=== PATIENT | female | born 2000 | race Caucasian/White ===

== ENCOUNTER 2020-08-21 15:03 | Emergency (ER) | payer SELFPAY ==
[2020-08-21] VITALS (8 sets, daily range): BP systolic 109–129; BP diastolic 46–88; PULSE 70–81; RESP 14–18; TEMP 37.3; O2SAT 98–100; BMI 22.6
--- NOTE | 2020-08-21 17:54 | XRR_ITS ---
PROCEDURE INFORMATION: Exam: XR Chest, 1 View Exam date and time: 08/21/2020 6:04 PM Age: 20 years old Clinical indication: Chest pain; Type not specified; Additional info: Cp x 2 days TECHNIQUE: Imaging protocol: XR of the chest Views: 1 view. COMPARISON: No relevant prior studies available. FINDINGS: Lungs: Unremarkable. No consolidation. Pleural spaces: Unremarkable. No pleural effusion. No pneumothorax. Heart/Mediastinum: Unremarkable. No cardiomegaly. Bones/joints: Unremarkable. XR/XR chest 1V portable [id number] IMPRESSION: No acute findings.
[2020-08-21 18:13] LABS: Basophils # 0.1 10^3/uL (0.0-0.1); Eosinophils # 0.2 10^3/uL (0.0-0.8); Eosinophils % 3.3 %; Hematocrit 43.2 % (37.0-47.0); Hemoglobin 13.5 g/dL (11.5-15.3); Lymphocytes # 2.3 10^3/uL (1.5-6.5); Lymphocytes % 37.3 %; Mean Corpuscular HGB Conc 31.3 g/dL (30.0-36.0); Mean Corpuscular Hemoglobin 28.6 pg (28.0-34.0); Mean Corpuscular Volume 91.5 fL (81-99); Mean Platelet Volume 9.8 fL (7.4-10.4); Monocytes # 0.4 10^3/uL (0.2-0.9); Monocytes % 6.5 %; Neutrophils # 3.13 10^3/uL (1.8-8.0); Neutrophils % 51.7 %; Nucleated Red Blood Cells % 0 %; Platelet Count 307 10^3/cmm (130-400); Red Blood Count 4.72 10^6/uL (4.1-5.3)
--- NOTE | 2020-08-21 18:23 | W.ED.ABDPA2 ---
HPI - Abdominal Pain General: Chief Complaint: Abdominal Pain Stated Complaint: KIDNEY PAIN Time Seen by Provider: 08/21/20 17:48 Source: patient Mode of arrival: ambulatory Limitations: no limitations History of Present Illness: HPI narrative: 20-year-old female who states she has been having some dysuria along with some back pain over the last 2 weeks. States she is concerned that she may have a kidney infection or urinary tract infection. She denies any vaginal discharge denies any abdominal pain. She had no vomiting or diarrhea. States she is also had a slight chest pain.She denies any cough. MD elicited complaint: abdominal pain Associated Symptoms: Denies chills, dysuria and fever(s) Review of Systems Const: Denies: fever(s), chills, body aches or change in appetite Eyes: Denies: blurry vision or eye discomfort ENMT: Denies: throat pain or dental pain Card: Reports: chest pain Resp: Denies: dyspnea GI: Reports: abdominal pain : Denies: dysuria Musc: Denies: neck pain or back pain Skin/Breast: Denies: rash Neuro: Denies: headache(s) Psych: Denies: depression Yong/Lymph: Denies: easy bruising All/Imm: Denies: urticaria Physical Exam Const: COMMON NORMALS: no acute distress, patient oriented x3 and healthy appearing HENMT: COMMON NORMALS: normocephalic and atraumatic HEAD & SCALP: normocephalic and atraumatic Eye: COMMON NORMALS: Equal, round and reactive pupils present and EOMs intact bilaterally PUPIL: Yes Equal, round and reactive pupils present Neck/C-Spine: COMMON NORMALS: full ROM and supple Chest: COMMONS NORMALS: normal inspection of the chest and normal palpation of entire chest wall Resp: COMMON NORMALS: normal respiratory effort, No retractions, No use of accessory muscles and clear to auscultation bilaterally AUSCULTATION: clear to auscultation bilaterally Cardio: COMMON NORMALS: regular rate, regular rhythm and No murmurs present (Cardio) RATE: regular rate RHYTHM: regular rhythm GI: COMMON NORMALS: Normal to inspection, nondistended, normoactive bowel sounds present, Soft to palpation, non-tender and no masses PALPATION: Yes Soft to palpation Extremity: COMMON NORMALS: normal to inspection and full ROM Neuro: COMMON NORMALS: patient oriented x3, moves all extremities and no focal motor deficits Psych: COMMON NORMALS: mental status grossly normal, Normal thought process present and cooperative THOUGHT PROCESS: Normal thought process present Skin: COMMON NORMALS: no rashes or lesions noted and no wounds GENERAL SKIN EXAM: no rashes or lesions noted Course Vital Signs: Vital signs: Vital Signs Temperature 99.1 F 08/21/20 16:13 Pulse Rate 78 08/21/20 19:30 Respiratory Rate 16 08/21/20 19:30 Blood Pressure 120/46 08/21/20 19:30 Pulse Oximetry 100 08/21/20 19:30 MDM - Abdominal Pain MDM Narrative: Medical decision making narrative: Patient presents here with abdominal and flank pain with CT showing some fluid in the pelvis likely from a ruptured ovarian cyst. Her pain is minimal here and exam here is benign. She is stable for discharge is to follow-up with her PCP in 2 to 4 days. I will write her [place] for home. Urinalysis here shows no signs urinary tract infection. She denies any vaginal discharge and has no signs of PID. She is to return if worsening. Lab Data: Labs: Lab Results 08/21/20 08/21/20 08/21/20 Range/Units 17:47 17:47 17:47 WBC (4.5-13.0) 10^3/ uL RBC (4.1-5.3) 10^6/u L Hgb (11.5-15.3) g/dL Hct (37.0-47.0) % MCV (81-99) fL MCH (28.0-34.0) pg MCHC (30.0-36.0) g/dL RDW (12.1-15.1) % Plt Count (130-400) 10^3/c mm MPV (7.4-10.4) fL Neut % (Auto) % Lymph % (Auto) % [place] % (Auto) % Eos % (Auto) % Baso % (Auto) % Neut # (Auto) (1.8-8.0) 10^3/u L Lymph # (Auto) (1.5-6.5) 10^3/u L [place] # (Auto) (0.2-0.9) 10^3/u L Eos # (Auto) (0.0-0.8) 10^3/u L Baso # (Auto) (0.0-0.1) 10^3/u L Nucleated RBC % (a uto) % Nucleated RBCs # /100WBC Sodium Potassium Chloride Carbon Dioxide Anion Gap BUN Creatinine GFR Calculation Glucose Calculated Osmolal ity Calcium Total Bilirubin AST ALT Alkaline Phosphata se Total Protein Albumin Globulin Lipase HCG, Qual Negative (Negative) Urine Color Straw Cancelled (Yellow) Urine Appearance Clear Cancelled (CLEAR) Urine pH 5 Cancelled (5-7) Ur Specific Gravit y 1.015 Cancelled (1.005-1.030) Urine Protein Neg Cancelled (Negative) Urine Glucose (UA) Norm Cancelled (Normal) Urine Ketones Negative Cancelled (Negative) Urine Blood Neg Cancelled (Negative) Urine Nitrate Negative Cancelled (Negative) Urine Bilirubin Neg Cancelled (Negative) Prot Sulfosalicyli c Acd Cancelled Urine Urobilinogen Norm Cancelled (Negative) mg/dL Ur Leukocyte Keyla ase Negative Cancelled (Negative) Urine RBC None (0-2) /hpf Urine WBC None (0-5) /hpf Ur Squamous Epith Cells Rare (0-5) /hpf Amorphous Sediment Not Reportable Urine Bacteria Trace (NONE) /hpf 08/21/20 08/21/20 08/21/20 Range/Units 17:50 17:50 19:00 WBC 6.0 (4.5-13.0) 10^3/ uL RBC 4.72 (4.1-5.3) 10^6/u L Hgb 13.5 (11.5-15.3) g/dL Hct 43.2 (37.0-47.0) % MCV 91.5 (81-99) fL MCH 28.6 (28.0-34.0) pg MCHC 31.3 (30.0-36.0) g/dL RDW 13.0 (12.1-15.1) % Plt Count 307 (130-400) 10^3/c mm MPV 9.8 (7.4-10.4) fL Neut % (Auto) 51.7 % Lymph % (Auto) 37.3 % [place] % (Auto) 6.5 % Eos % (Auto) 3.3 % Baso % (Auto) 1.0 % Neut # (Auto) 3.13 (1.8-8.0) 10^3/u L Lymph # (Auto) 2.3 (1.5-6.5) 10^3/u L [place] # (Auto) 0.4 (0.2-0.9) 10^3/u L Eos # (Auto) 0.2 (0.0-0.8) 10^3/u L Baso # (Auto) 0.1 (0.0-0.1) 10^3/u L Nucleated RBC % (a uto) 0 % Nucleated RBCs # 0.0 /100WBC Sodium Cancelled 140 Potassium Cancelled 3.5 Chloride Cancelled 106 Carbon Dioxide Cancelled 25 Anion Gap Cancelled 12.5 BUN Cancelled 7 Creatinine Cancelled 0.5 GFR Calculation Cancelled 157.3 H Glucose Cancelled 83 Calculated Osmolal ity Cancelled 287 Calcium Cancelled 8.8 Total Bilirubin Cancelled 0.2 AST Cancelled 35 H ALT Cancelled 28 Alkaline Phosphata se Cancelled 67 Total Protein Cancelled 7.0 Albumin Cancelled 4.4 Globulin Cancelled 2.6 Lipase Cancelled 22 HCG, Qual (Negative) Urine Color (Yellow) Urine Appearance (CLEAR) Urine pH (5-7) Ur Specific Gravit y (1.005-1.030) Urine Protein (Negative) Urine Glucose (UA) (Normal) Urine Ketones (Negative) Urine Blood (Negative) Urine Nitrate (Negative) Urine Bilirubin (Negative) Prot Sulfosalicyli c Acd Urine Urobilinogen (Negative) mg/dL Ur Leukocyte Keyla ase (Negative) Urine RBC (0-2) /hpf Urine WBC (0-5) /hpf Ur Squamous Epith Cells (0-5) /hpf Amorphous Sediment Urine Bacteria (NONE) /hpf Imaging Data ^: CT Abd/Pel: Attestation: I personally reviewed and interpreted this imaging study as follows: Radiologist's impression: [address] [address] [address] Scan Report Signed Patient: Patti Naranjo Unit #: [id number] 2000 Age/Sex: 20 / F ADM Date: 08/21/20 Loc: ER Room/Bed: Attending Dr: Ordering Provider/Ordering MD: Federico Whipple MD Date of Service: 08/21/20 Procedure(s): CT abdomen pelvis w con* [id number] Accession Number(s): [id number] Report Number: [id number] PROCEDURE INFORMATION: Exam: CT Abdomen And Pelvis With Contrast Exam date and time: 08/21/2020 7:50 PM Age: 20 years old Clinical indication: Abdominal pain; Other: Bilat flank; Additional info: Abd pain TECHNIQUE: Imaging protocol: Computed tomography of the abdomen and pelvis with contrast. Radiation optimization: All CT scans at this facility use at least one of these dose optimization techniques: automated exposure control; mA and/or kV adjustment per patient size (includes targeted exams where dose is matched to clinical indication); or iterative reconstruction. Contrast material: OMNI 300; Contrast volume: 95 ml; Contrast route: INTRAVENOUS (IV); COMPARISON: No relevant prior studies available. RADIATION DOSE METRICS: Total DLP (mGy-cm): 340.22 FINDINGS: Liver: Normal. No mass. Gallbladder and bile ducts: Collapsed gallbladder. Pancreas: Normal. No ductal dilation. Spleen: Normal. No splenomegaly. Adrenal glands: Normal. No mass. Kidneys and ureters: Normal. No hydronephrosis. Stomach and bowel: Unremarkable. No obstruction. No mucosal thickening. Appendix: No evidence of appendicitis. Intraperitoneal space: Small amount of nonspecific high density free fluid in the dependent portion of the pelvis suggesting hemorrhagic rupture of ovarian cyst versus less likely possibility of pelvic inflammatory disease. Vasculature: Unremarkable. No abdominal aortic aneurysm. Lymph nodes: Unremarkable. No enlarged lymph nodes. Urinary bladder: Unremarkable as visualized. Reproductive: Probable right corpus luteum cyst with ring enhancement noted on coronal image 20. Bones/joints: Unremarkable. No acute fracture. Soft tissues: Unremarkable. CT/CT abdomen pelvis w con* [id number] IMPRESSION: Small amount of nonspecific high density free fluid in the dependent portion of the pelvis suggesting hemorrhagic rupture of ovarian cyst versus less likely possibility of pelvic inflammatory disease. Discharge Plan Discharge Patient Disposition: Home Clinical Impression: Ovarian cyst Qualifiers: Laterality: unspecified laterality Qualified Code(s): N83.209 - Unspecified ovarian cyst, unspecified side Condition: Stable Prescriptions: [place] 5-325 mg tablet 1 tab PO Q6H PRN (Reason: pain) Qty: 14 RF: 0 ondansetron 4 mg tablet,disintegrating 4 mg PO Q6H PRN (Reason: nausea and vomiting) Qty: 14 RF: 0 Discharge Orders: Discharge ED (Routine); Ordered 08/21/20 Ordered By: Federico Whipple Referrals: Vini Titus MD [Primary Care Provider] - 1-3 days Discharge Diet: Advance as tolerated Discharge Activity: Resume usual activity Coding Level of Care Code ED Building Trades Instructor for Chg Fwd Exam Comprehensive
[2020-08-21] MEDS: sodium chloride 0.9% 1,000 ML 999 ML IV (18:24)
[2020-08-21 18:35] LABS: HCG Qualitative Urine. Negative (Negative)
[2020-08-21 18:41] LABS: Add Urine Culture? No; Bacteria Urine TRACE /hpf; Bilirubin Urine Neg (Negative); Blood Urine Neg (Negative); Glucose Urine UA Norm (Normal); Ketones Urine Negative (Negative); Leukocyte Esterase Urine Negative (Negative); Nitrate Urine Negative (Negative); Protein Urine Neg (Negative); Specific Gravity, Urine 1.015 (1.005-1.030); Squamous Epithelial Cell Urine RARE /hpf (0-5); Urine Appearance Clear (CLEAR); Urine Color Straw (Yellow); Urobilinogen Urine Norm (Negative); pH Urine 5 (5-7)
[2020-08-21 19:33] LABS: Alanine Aminotransferase 28 U/L (0-33); Albumin Level 4.4 g/dL (3.5-5.2); Alkaline Phosphatase 67 IU/L (35-105); Anion Gap 12.5 (5-19); Aspartate Amino Transferase 35 U/L (0-32); Blood Urea Nitrogen 7 mg/dL (6-20); Calcium 8.8 mg/dL (8.5-10.5); Carbon Dioxide 25 mmol/L (22-29); Chloride 106 mmol/L (98-107); Creatinine Clr Calc Pharmacy 172.7801; Globulin 2.6 g/dL (1.3-4.6); Glomerular Filtration Rate 157.3 mL/min (90-130); Glucose 83 mg/dL (65-115); Lipase 22 U/L (13-60); Osmolality Calculated 287 mOsm/kg (285-295); Potassium 3.5 mmol/L (3.5-5.1); Sodium 140 mmol/L (136-145); Total Bilirubin 0.2 mg/dL (0.15-1.2)
--- NOTE | 2020-08-21 19:49 | CTR_ITS ---
PROCEDURE INFORMATION: Exam: CT Abdomen And Pelvis With Contrast Exam date and time: 08/21/2020 7:50 PM Age: 20 years old Clinical indication: Abdominal pain; Other: Bilat flank; Additional info: Abd pain TECHNIQUE: Imaging protocol: Computed tomography of the abdomen and pelvis with contrast. Radiation optimization: All CT scans at this facility use at least one of these dose optimization techniques: automated exposure control; mA and/or kV adjustment per patient size (includes targeted exams where dose is matched to clinical indication); or iterative reconstruction. Contrast material: OMNI 300; Contrast volume: 95 ml; Contrast route: INTRAVENOUS (IV); COMPARISON: No relevant prior studies available. RADIATION DOSE METRICS: Total DLP (mGy-cm): 340.22 FINDINGS: Liver: Normal. No mass. Gallbladder and bile ducts: Collapsed gallbladder. Pancreas: Normal. No ductal dilation. Spleen: Normal. No splenomegaly. Adrenal glands: Normal. No mass. Kidneys and ureters: Normal. No hydronephrosis. Stomach and bowel: Unremarkable. No obstruction. No mucosal thickening. Appendix: No evidence of appendicitis. Intraperitoneal space: Small amount of nonspecific high density free fluid in the dependent portion of the pelvis suggesting hemorrhagic rupture of ovarian cyst versus less likely possibility of pelvic inflammatory disease. Vasculature: Unremarkable. No abdominal aortic aneurysm. Lymph nodes: Unremarkable. No enlarged lymph nodes. Urinary bladder: Unremarkable as visualized. Reproductive: Probable right corpus luteum cyst with ring enhancement noted on coronal image 20. Bones/joints: Unremarkable. No acute fracture. Soft tissues: Unremarkable. CT/CT abdomen pelvis w con* [id number] IMPRESSION: Small amount of nonspecific high density free fluid in the dependent portion of the pelvis suggesting hemorrhagic rupture of ovarian cyst versus less likely possibility of pelvic inflammatory disease. Radiation Dose CTDIVOL = (mGy): DLP = 340.22 (mGy-cm)
[2020-08-21] MEDS: iohexol 300 mg/mL 100 mL Btl IV (19:59)
== END 2020-08-21 20:42 | disposition home or self-care (01) ==
PROVIDERS: Physician Assistant; Emergency Provider Emergency Medicine; PCP Family Medicine
DX: N83.209 Unspecified ovarian cyst, unspecified side (principal)
CPT/HCPCS: 12345; 36415; 71045; 74177; 80053; 81001; 81003; 81025; 83690; 85025; 99283; J7030; Q9967

== ENCOUNTER 2021-01-29 13:09 | Emergency (ER) | payer SELFPAY ==
[2021-01-29 13:13] VITALS: BP 90/54; PULSE 58; RESP 18; TEMP 36.3; O2SAT 98; BMI 22.4
[2021-01-29 15:22] LABS: Add Urine Microscopic? NO; Urine Appearance Clear (CLEAR); Urine Color Yellow (Yellow); pH Urine 7 (5-7)
[2021-01-29 15:23] LABS: HCG Qualitative Urine. Negative (Negative)
[2021-01-29 15:23] LABS: Bilirubin Urine Neg (Negative); Blood Urine Neg (Negative); Charge for UA Resulting for Rev; Glucose Urine UA Norm (Normal); Ketones Urine Negative (Negative); Leukocyte Esterase Urine Negative (Negative); Nitrate Urine Negative (Negative); Protein Urine Neg (Negative); Urobilinogen Urine Norm (Negative)
--- NOTE | 2021-01-29 16:23 | W.ED.ABDPA2 ---
HPI - Abdominal Pain General: Chief Complaint: Abdominal Pain Stated Complaint: NAUSEA AND ABD PAIN Time Seen by Provider: 01/29/21 16:01 History of Present Illness: HPI narrative: 20-year-old female presents emergency complaining of bilateral pelvic pain for the last 30 minutes. She has not had any vomiting or diarrhea no fever sweats or chills she has a history of ovarian cyst in the past she does not believe there is any potential she is . MD elicited complaint: abdominal pain Pertinent past history: other (Ovarian cysts) Onset (ago): hour(s) Pain Consistency: intermittent Location: Pelvis Quality: cramping Radiation: none Migration to: no migration Exacerbating factors: movement Relieving factors: rest Associated Symptoms: Reports GI cramping; Denies anorexia, belching, bloating, change in bowel habits, change in stool character, chills, coffee ground emesis, constipation, diarrhea, dyspepsia, dysuria, excessive flatus, fever(s), heartburn, hematochezia, hematuria, hematemesis, fecal incontinence, loose stools, melena, nausea, poor appetite, syncope and vomiting Review of Systems Const: Denies: fever(s) or chills ENMT: Denies: throat pain, ear or mastoid pain, nasal discharge or nasal congestion Card: Denies: syncope Resp: Denies: dyspnea, productive cough or non-productive cough GI: Reports: GI cramping; Denies: nausea, vomiting, hematemesis, coffee ground emesis, heartburn, diarrhea, constipation, bloating, belching, excessive flatus, fecal incontinence, change in bowel habits, change in stool character, hematochezia or melena : Denies: dysuria or hematuria Skin/Breast: Denies: rash or pruritus Physical Exam Const: COMMON NORMALS: no acute distress GENERAL APPEARANCE: cooperative and comfortable ORIENTATION/CONSCIOUSNESS: Yes awake, Yes oriented to person, Yes oriented to place and Yes oriented to time HENMT: COMMON NORMALS: normocephalic, atraumatic, hearing grossly normal bilaterally and external ears normal HEAD & SCALP: normocephalic and atraumatic EXTERNAL EAR: Yes external ears normal Neck/C-Spine: COMMON NORMALS: no JVD Resp: COMMON NORMALS: normal respiratory effort, No retractions, No use of accessory muscles and clear to auscultation bilaterally AUSCULTATION: clear to auscultation bilaterally Cardio: COMMON NORMALS: no JVD, regular rate, regular rhythm and No murmurs present (Cardio) RATE: regular rate RHYTHM: regular rhythm GI: COMMON NORMALS: Soft to palpation and No hepatosplenomegaly present AUSCULTATION: Yes normoactive bowel sounds PALPATION: Yes Soft to palpation, No Tenderness to palpation present (GI), No Guarding due to palpation present (GI) and Yes No hepatosplenomegaly present Extremity: COMMON NORMALS: normal to inspection, capillary refill normal, no clubbing, cyanosis or edema, no calf tenderness and no pedal edema Neuro: SENSORIUM/ORIENTATION: Yes oriented to person, Yes oriented to place and Yes oriented to time Skin: COMMON NORMALS: no rashes or lesions noted GENERAL SKIN EXAM: no rashes or lesions noted Course Vital Signs: Vital signs: Vital Signs Temperature 97.4 F L 01/29/21 13:13 Pulse Rate 61 01/29/21 17:32 Respiratory Rate 18 01/29/21 17:32 Blood Pressure 99/56 01/29/21 17:32 Pulse Oximetry 98 01/29/21 17:32 MDM - Abdominal Pain MDM Narrative: Medical decision making narrative: Negative beta-hCG. Ultrasound shows pelvic fluid consistent with ruptured ovarian cyst. Discharge home with anti-inflammatories follow-up with primary care return if symptoms worsen Lab Data: Labs: Lab Results 01/29/21 01/29/21 01/29/21 Range/Units 14:52 15:00 16:35 WBC 10.8 (4.5-13.0) 10^3/ uL RBC 4.41 (4.1-5.3) 10^6/u L Hgb 12.7 (11.5-15.3) g/dL Hct 40.3 (37.0-47.0) % MCV 91.4 (81-99) fL MCH 28.8 (28.0-34.0) pg MCHC 31.5 (30.0-36.0) g/dL RDW 13.0 (12.1-15.1) % Plt Count 266 (130-400) 10^3/c mm MPV 9.9 (7.4-10.4) fL Neut % (Auto) 80.0 % Lymph % (Auto) 12.9 % [facility] % (Auto) 5.9 % Eos % (Auto) 0.6 % Baso % (Auto) 0.4 % Neut # (Auto) 8.66 H (1.8-8.0) 10^3/u L Lymph # (Auto) 1.4 L (1.5-6.5) 10^3/u L [facility] # (Auto) 0.6 (0.2-0.9) 10^3/u L Eos # (Auto) 0.1 (0.0-0.8) 10^3/u L Baso # (Auto) 0.0 (0.0-0.1) 10^3/u L Nucleated RBC % (a uto) 0 % Nucleated RBCs # 0.0 /100WBC Sodium (136-145) mmol/L Potassium (3.5-5.1) mmol/L Chloride (98-107) mmol/L Carbon Dioxide (22-29) mmol/L Anion Gap (5-19) BUN (6-20) mg/dL Creatinine (0.5-0.9) mg/dL GFR Calculation (90-130) mL/min Glucose (65-115) mg/dL Calculated Osmolal ity (285-295) mOsm/k g Calcium (8.5-10.5) mg/dL Total Bilirubin (0.15-1.2) mg/dL AST (0-32) U/L ALT (0-33) U/L Alkaline Phosphata se (35-105) IU/L Total Protein (6.6-8.7) g/dL Albumin (3.5-5.2) g/dL Globulin (1.3-4.6) g/dL Lipase (13-60) U/L HCG, Qual Negative (Negative) Urine Color Yellow (Yellow) Urine Appearance Clear (CLEAR) Urine pH 7 (5-7) Ur Specific Gravit y 1.010 (1.005-1.030) Urine Protein Neg (Negative) Urine Glucose (UA) Norm (Normal) Urine Ketones Negative (Negative) Urine Blood Neg (Negative) Urine Nitrate Negative (Negative) Urine Bilirubin Neg (Negative) Urine Urobilinogen Norm (Negative) mg/dL Ur Leukocyte Keyla ase Negative (Negative) 01/29/21 01/29/21 Range/Units 16:35 16:35 WBC (4.5-13.0) 10^3/ uL RBC (4.1-5.3) 10^6/u L Hgb (11.5-15.3) g/dL Hct (37.0-47.0) % MCV (81-99) fL MCH (28.0-34.0) pg MCHC (30.0-36.0) g/dL RDW (12.1-15.1) % Plt Count (130-400) 10^3/c mm MPV (7.4-10.4) fL Neut % (Auto) % Lymph % (Auto) % [facility] % (Auto) % Eos % (Auto) % Baso % (Auto) % Neut # (Auto) (1.8-8.0) 10^3/u L Lymph # (Auto) (1.5-6.5) 10^3/u L [facility] # (Auto) (0.2-0.9) 10^3/u L Eos # (Auto) (0.0-0.8) 10^3/u L Baso # (Auto) (0.0-0.1) 10^3/u L Nucleated RBC % (a uto) % Nucleated RBCs # /100WBC Sodium 137 (136-145) mmol/L Potassium 4.1 (3.5-5.1) mmol/L Chloride 103 (98-107) mmol/L Carbon Dioxide 24 (22-29) mmol/L Anion Gap 14.1 (5-19) BUN 9 (6-20) mg/dL Creatinine 0.5 (0.5-0.9) mg/dL GFR Calculation 157.3 H (90-130) mL/min Glucose 80 (65-115) mg/dL Calculated Osmolal ity 282 L (285-295) mOsm/k g Calcium 9.0 (8.5-10.5) mg/dL Total Bilirubin 0.3 (0.15-1.2) mg/dL AST 18 (0-32) U/L ALT 11 (0-33) U/L Alkaline Phosphata se 56 (35-105) IU/L Total Protein 7.3 (6.6-8.7) g/dL Albumin 4.5 (3.5-5.2) g/dL Globulin 2.8 (1.3-4.6) g/dL Lipase 15 (13-60) U/L HCG, Qual Negative (Negative) Urine Color (Yellow) Urine Appearance (CLEAR) Urine pH (5-7) Ur Specific Gravit y (1.005-1.030) Urine Protein (Negative) Urine Glucose (UA) (Normal) Urine Ketones (Negative) Urine Blood (Negative) Urine Nitrate (Negative) Urine Bilirubin (Negative) Urine Urobilinogen (Negative) mg/dL Ur Leukocyte Keyla ase (Negative) Discharge Plan Discharge Patient Disposition: Home Clinical Impression: Ovarian cyst Condition: Stable Prescriptions: New diclofenac sodium 75 mg tablet,delayed release (DR/EC) 75 mg PO Q12H PRN (Reason: pain) Qty: 20 RF: 0 Discharge Orders: Discharge ED (Routine); Ordered 01/29/21 Ordered By: George Meade Referrals: Vini Titus MD [Primary Care Provider] - Discharge Diet: Usual diet Discharge Activity: Resume usual activity Patient Instructions: Opioid Safety Activity Restrictions/Additional Instructions: Follow-up with your doctor as needed. Coding Level of Care Code ED Flight Simulator Teacher for Chg Fwd Exam Comprehensive
--- NOTE | 2021-01-29 16:26 | USR_ITS ---
PROCEDURE INFORMATION: Exam: US Nonobstetric Pelvis; Complete Exam date and time: 01/29/2021 4:50 PM Age: 20 years old Clinical indication: Pelvic pain; Patient HX: Pain in lower abd. PT states started and worse on lt. TECHNIQUE: Imaging protocol: Transabdominal pelvic nonobstetric ultrasound. Complete exam. Real time ultrasound with image documentation. COMPARISON: CT abdomen pelvis w con* [id number] 08/21/2020 7:48 PM FINDINGS: Uterus/cervix: Uterus is normal. Endometrial stripe is normal measuring 1.2 cm in thickness. Right adnexa: Ovary is normal. No mass. Normal blood flow. Left adnexa: Ovary is normal. Normal blood flow. Probable small follicle measuring 1.8 cm in size. Intraperitoneal space: Trace pelvic free fluid, likely physiologic. Urinary bladder: Normal. US/US pelvic complete* [id number] IMPRESSION: Normal sonographic appearance of the uterus and ovaries. Trace pelvic free fluid, likely physiologic.
[2021-01-29 16:52] LABS: Basophils % 0.4 %; Eosinophils # 0.1 10^3/uL (0.0-0.8); Eosinophils % 0.6 %; Hematocrit 40.3 % (37.0-47.0); Hemoglobin 12.7 g/dL (11.5-15.3); Lymphocytes # 1.4 10^3/uL (1.5-6.5); Lymphocytes % 12.9 %; Mean Corpuscular HGB Conc 31.5 g/dL (30.0-36.0); Mean Corpuscular Hemoglobin 28.8 pg (28.0-34.0); Mean Corpuscular Volume 91.4 fL (81-99); Mean Platelet Volume 9.9 fL (7.4-10.4); Monocytes # 0.6 10^3/uL (0.2-0.9); Monocytes % 5.9 %; Neutrophils # 8.66 10^3/uL (1.8-8.0); Nucleated Red Blood Cells % 0 %; Platelet Count 266 10^3/cmm (130-400); Red Blood Count 4.41 10^6/uL (4.1-5.3); White Blood Count 10.8 10^3/uL (4.5-13.0)
[2021-01-29 17:21] LABS: Alanine Aminotransferase 11 U/L (0-33); Albumin Level 4.5 g/dL (3.5-5.2); Alkaline Phosphatase 56 IU/L (35-105); Aspartate Amino Transferase 18 U/L (0-32); Blood Urea Nitrogen 9 mg/dL (6-20); Carbon Dioxide 24 mmol/L (22-29); Chloride 103 mmol/L (98-107); Globulin 2.8 g/dL (1.3-4.6); Glomerular Filtration Rate 157.3 mL/min (90-130); Glucose 80 mg/dL (65-115); Lipase 15 U/L (13-60); Osmolality Calculated 282 mOsm/kg (285-295); Sodium 137 mmol/L (136-145); Total Bilirubin 0.3 mg/dL (0.15-1.2); Total Protein 7.3 g/dL (6.6-8.7)
[2021-01-29 17:22] LABS: Anion Gap 14.1 (5-19); Potassium 4.1 mmol/L (3.5-5.1)
[2021-01-29 17:32] VITALS: BP 99/56; PULSE 61; RESP 18; O2SAT 98
[2021-01-29 17:34] LABS: HCG, Serum Qual Negative (Negative)
== END 2021-01-29 17:34 | disposition home or self-care (01) ==
PROVIDERS: Registered Nurse; Emergency Provider Family Medicine; PCP Family Medicine
DX: N83.209 Unspecified ovarian cyst, unspecified side (principal)
CPT/HCPCS: 76856; 80053; 81003; 81025; 83690; 84703; 85025; 99283

== ENCOUNTER 2021-11-21 15:52 | Outpatient (CLI) | payer OTHER, SELFPAY ==
[2021-11-21 21:47] LABS: Adenovirus Not Detected (NOT DETECT); Chlamydia Pneumoniae Not Detected (NOT DETECT); Coronavirus 229E,HKU1,NL63,OC4 Not Detected (NOT DETECT); Human Metapneumovirus Not Detected (NOT DETECT); Human Rhinovirus/Enterovirus Detected (NOT DETECT); Influenza A Not Detected (NOT DETECT); Influenza A H1 Not Detected (NOT DETECT); Influenza A H1-2009 Not Detected (NOT DETECT); Influenza A H3 Not Detected (NOT DETECT); Influenza B Not Detected (NOT DETECT); Mycoplasma Pneumoniae Not Detected (NOT DETECT); Parainfluenza Virus Type 1 Not Detected (NOT DETECT); Parainfluenza Virus Type 2 Not Detected (NOT DETECT); Parainfluenza Virus Type 3 Not Detected (NOT DETECT); Parainfluenza Virus Type 4 Not Detected (NOT DETECT); Respiratory Syncytial Virus A Not Detected (NOT DETECT); Respiratory Syncytial Virus B Not Detected (NOT DETECT); SARS-COV-2 Not Detected (NOT DETECT)
[2021-11-21 22:29] LABS: Human Metapneumovirus Not Detected (NOT DETECT); Human Rhinovirus/Enterovirus Detected (NOT DETECT); Results from Genmark
== END 2021-11-21 15:53 | disposition home or self-care (01) ==
LOC: LAB 15:57
PROVIDERS: Visit Provider Registered Nurse Neonatal Intensive Care
DX: Z20.822 Contact with and (suspected) exposure to COVID-19 (principal)
CPT/HCPCS: 87635; 87801

== ENCOUNTER 2022-01-10 12:45 | Emergency (ER) | payer OTHER, SELFPAY ==
[2022-01-10 12:48] VITALS: BP 107/69; PULSE 59; RESP 15; TEMP 36.9; O2SAT 100
--- NOTE | 2022-01-10 13:12 | ED_ITS ---
HPI - Skin/Abscess/Foreign Bdy General: Chief complaint: Needlestick/Injury/Exposure Stated complaint: needle stick Time Seen by Provider: 01/10/22 12:46 History of Present Illness: Patient is a 21-year-old female comes to the ED with an accidental needlestick injury and left hand. 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 Denies any other symptoms or injury. No other complaints. Patient states she is up-to-date on her tetanus. Associated symptoms: Deny chills, fever(s), nausea or vomiting Review of Systems Const: Denies: fever(s), chills or fatigue Eyes: Denies: change in vision or eye discomfort ENMT: Denies: throat pain, odynophagia, nasal discharge or nasal congestion Card: Denies: chest pain, palpitations, edema, swelling of feet/ankles, dyspnea on exertion or orthopnea Resp: Denies: dyspnea, productive cough or non-productive cough GI: Denies: abdominal pain, nausea, vomiting, diarrhea, constipation or hematochezia : Denies: flank pain, dysuria or hematuria Musc: Denies: neck pain, back pain or extremity swelling Skin/Breast: Reports: new lesions (Small superficial puncture wound to left hand); Denies: rash Neuro: Denies: headache(s), numbness in extremities or weakness in extremities [facility] ED PFSH: Medical History (Updated 01/11/22 @ 13:21 by HAM Braden) No pertinent family history Surgical History (Updated 01/11/22 @ 13:21 by HAM Braden) No pertinent past surgical history Physical Exam Const: COMMON NORMALS: no acute distress, patient oriented x3, healthy appearing and alert GENERAL APPEARANCE: cooperative and comfortable HENMT: COMMON NORMALS: normocephalic HEAD & SCALP: normocephalic MOUTH: Normal oral and palatal mucosa present THROAT: posterior oropharynx normal and uvula midline Neck/C-Spine: COMMON NORMALS: supple GENERAL: Yes normal visual inspection Resp: COMMON NORMALS: normal respiratory effort, No retractions, No use of accessory muscles and clear to auscultation bilaterally AUSCULTATION: clear to auscultation bilaterally Cardio: COMMON NORMALS: regular rate, regular rhythm, S1 normal heart sound present, S2 normal heart sound present, No gallops present (Cardio), No clicks present (Cardio), No murmurs present (Cardio) and Peripheral pulses 2+ throughout RATE: regular rate RHYTHM: regular rhythm HEART SOUNDS: S1 normal heart sound present and S2 normal heart sound present PERIPHERAL PULSES: Peripheral pulses 2+ throughout GI: COMMON NORMALS: Normal to inspection, nondistended, normoactive bowel sounds present, Soft to palpation, non-tender and no masses PALPATION: Yes Soft to palpation : COMMON NORMALS: Yes no CVA tenderness BLADDER/KIDNEY EXAM: Yes no CVA tenderness Back/Pelvis: COMMON NORMALS: no CVA tenderness Extremity: COMMON NORMALS: normal to inspection Neuro: COMMON NORMALS: patient oriented x3 and moves all extremities SENSORIUM/ORIENTATION: Yes alert Skin: NARRATIVE SKIN EXAM: Puncture wound can hardly be seen on left hand. No other acute findings the rest of exam of hand is benign. 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 She had an accidental needlestick into the left hand with suture needle. She is healthy and having no side effects. Exam is benign. Vitals are stable. Needlestick injury labs performed. CBC and CMP were unremarkable. Hepatitis panel was normal and HIV was nonreactive. Patient was discharged and told to follow-up with her PCP in the next 6 to 8 weeks to have labs rechecked. Return to ED precautions given. Patient resting agree with plan. Lab Data I reviewed the patient's lab results. : 01/10/22 13:05 01/10/22 13:05 Laboratory Results WBC 4.9 10^3/uL (4.0-10.0) 01/10/22 13:05 RBC 4.18 10^6/uL (4.1-5.3) 01/10/22 13:05 Hgb 11.6 g/dL (11.5-15.3) 01/10/22 13:05 Hct 36.0 % (37.0-47.0) L 01/10/22 13:05 MCV 86.1 fl (81-99) 01/10/22 13:05 MCH 27.8 pg (28.0-34.0) L 01/10/22 13:05 MCHC 32.2 g/dL (30.0-36.0) 01/10/22 13:05 RDW 14.7 % (12.1-15.1) 01/10/22 13:05 Plt Count 252 10^3/cmm (130-400) 01/10/22 13:05 MPV 9.8 fL (7.4-10.4) 01/10/22 13:05 Neut % (Auto) 41.0 % 01/10/22 13:05 Lymph % (Auto) 37.2 % 01/10/22 13:05 [place]ud[place]eth % (Auto) 9.9 % 01/10/22 13:05 Eos % (Auto) 10.5 % 01/10/22 13:05 Baso % (Auto) 1.2 % 01/10/22 13:05 Neut # (Auto) 2.00 10^3/uL (1.8-7.7) 01/10/22 13:05 Lymph # (Auto) 1.8 10^3/uL (0.8-4.8) 01/10/22 13:05 [place]eth # (Auto) 0.5 10^3/uL (0.2-0.9) 01/10/22 13:05 Eos # (Auto) 0.5 10^3/uL (0.0-0.8) 01/10/22 13:05 Baso # (Auto) 0.1 10^3/uL (0.0-0.1) 01/10/22 13:05 Nucleated RBC % (auto) 0 % 01/10/22 13:05 Nucleated RBCs # 0.0 /100WBC 01/10/22 13:05 Sodium 139 mmol/L (136-145) 01/10/22 13:05 Potassium 3.6 mmol/L (3.5-5.1) 01/10/22 13:05 Chloride 102 mmol/L (98-107) 01/10/22 13:05 Carbon Dioxide 26 mmol/L (22-29) 01/10/22 13:05 Anion Gap 14.6 (5-19) 01/10/22 13:05 BUN 10 mg/dL (6-20) 01/10/22 13:05 Creatinine 0.7 mg/dL (0.5-0.9) 01/10/22 13:05 GFR Calculation 105.6 mL/min (90-130) 01/10/22 13:05 Glucose 86 mg/dL (65-115) 01/10/22 13:05 Calculated Osmolality 286 mOsm/kg (285-295) 01/10/22 13:05 Calcium 8.7 mg/dL (8.5-10.5) 01/10/22 13:05 Total Bilirubin 0.3 mg/dL (0.15-1.2) 01/10/22 13:05 AST 27 U/L (0-32) 01/10/22 13:05 ALT 20 U/L (0-33) 01/10/22 13:05 Alkaline Phosphatase 78 IU/L (35-105) 01/10/22 13:05 Total Protein 8.0 g/dL (6.6-8.7) 01/10/22 13:05 Albumin 4.7 g/dL (3.5-5.2) 01/10/22 13:05 Globulin 3.3 g/dL (1.3-4.6) 01/10/22 13:05 Hepatitis A IgM Ab Non-reactive (Nonreactive) 01/10/22 13:05 Hep Bs Antigen Non-reactive (Nonreactive) 01/10/22 13:05 Hep Bs Antibody 3.5 (11.5-1000) L 01/10/22 13:05 Hep B Core Total Ab Non-reactive (Nonreactive) 01/10/22 13:05 Hepatitis C Antibody Non-reactive (Nonreactive) 01/10/22 13:05 HIV 1&2 Ab & HIV 1 Ag Non-reactive (Non-Reactiv) 01/10/22 13:05 HIV 1&2 Antibody Non-reactive (Non-Reactiv) 01/10/22 13:05 Discharge Plan Discharge Patient Disposition: Home Clinical Impression: Needlestick injury due to non-hypodermic needle Condition: Stable Prescriptions: No Action diclofenac sodium 75 mg tablet,delayed release (DR/EC) 75 mg PO Q12H PRN (Reason: pain) Qty: 20 0RF Discharge Orders: Discharge ED (Routine); Ordered 01/10/22 Ordered By: Mike Lovett Discharge Diet: Regular Discharge Activity: Increase activity as tolerated Patient Instructions: Blood/Body Fluid Exposure - Occupational, Needle Stick Injuries (ED) Activity Restrictions/Additional Instructions: Follow-up with medical provider as directed. Your labs are pending and you can call [facility] later today to find out your lab results. I have your labs (hepatitis panel, HIV and liver function labs) at PCP in the next 6 to 8 weeks. Return to the ER or your medical provider if condition worsens. Please read and understand discharge instructions. Thank you for choosing [facility] for your healthcare needs today. Please realize this is an emergency room and that we are providing you with a medical screening exam and this may not be complete and all inclusive of all the testing and or work up that you may need to determine your ailment or severity of your illness. It is very important that you follow up as instructed or that you return to the Emergency Department should you have concerns or if your condition changes or worsens in any way. Coding Level of Care Code ED Clam Grower for Sunil Gandara Exam Comprehensive
[2022-01-10 13:30] LABS: Basophils # 0.1 10^3/uL (0.0-0.1); Basophils % 1.2 %; Eosinophils # 0.5 10^3/uL (0.0-0.8); Eosinophils % 10.5 %; Hemoglobin 11.6 g/dL (11.5-15.3); Lymphocytes # 1.8 10^3/uL (0.8-4.8); Lymphocytes % 37.2 %; Mean Corpuscular HGB Conc 32.2 g/dL (30.0-36.0); Mean Corpuscular Hemoglobin 27.8 pg (28.0-34.0); Mean Corpuscular Volume 86.1 fl (81-99); Mean Platelet Volume 9.8 fL (7.4-10.4); Monocytes # 0.5 10^3/uL (0.2-0.9); Monocytes % 9.9 %; Nucleated Red Blood Cells % 0 %; Platelet Count 252 10^3/cmm (130-400); Red Blood Count 4.18 10^6/uL (4.1-5.3); Red Cell Distribution Width 14.7 % (12.1-15.1); White Blood Count 4.9 10^3/uL (4.0-10.0)
[2022-01-10 14:10] LABS: Alanine Aminotransferase 20 U/L (0-33); Albumin Level 4.7 g/dL (3.5-5.2); Alkaline Phosphatase 78 IU/L (35-105); Anion Gap 14.6 (5-19); Aspartate Amino Transferase 27 U/L (0-32); Blood Urea Nitrogen 10 mg/dL (6-20); Calcium 8.7 mg/dL (8.5-10.5); Carbon Dioxide 26 mmol/L (22-29); Chloride 102 mmol/L (98-107); Globulin 3.3 g/dL (1.3-4.6); Glomerular Filtration Rate 105.6 mL/min (90-130); Glucose 86 mg/dL (65-115); Osmolality Calculated 286 mOsm/kg (285-295); Potassium 3.6 mmol/L (3.5-5.1); Sodium 139 mmol/L (136-145); Total Bilirubin 0.3 mg/dL (0.15-1.2)
[2022-01-10 14:26] LABS: HIV 1 & 2 Antibody Non-Reactive (Non-Reactiv); HIV 1 & 2 Antigen Non-Reactive (Non-Reactiv)
[2022-01-10 14:36] LABS: Hepatitis A Antibody IgM Non-Reactive (Nonreactive); Hepatitis B Core AB, Total Non-Reactive (Nonreactive); Hepatitis B Surface AB 3.5 (11.5-1000); Hepatitis B Surface Antigen Non-Reactive (Nonreactive); Hepatitis C Virus Antibody Non-Reactive (Nonreactive)
== END 2022-01-10 13:27 | disposition home or self-care (01) ==
PROVIDERS: Emergency Provider Physician Assistant
DX: S61.432A Puncture wound without foreign body of left hand, initial encounter (principal); W26.8XXA Contact with other sharp object(s), not elsewhere classified, initial encounter; Y92.234 Operating room of hospital as the place of occurrence of the external cause; Y99.0 Civilian activity done for income or pay
CPT/HCPCS: 80053; 85025; 86705; 86706; 86709; 86803; 87340; 87806; 99282